=== PATIENT | male | born 1975 | race Caucasian/White ===

== ENCOUNTER 2019-08-02 23:03 | Emergency (ER) | payer SELFPAY ==
[2019-08-02 23:40] VITALS: BP_SYST 132
== END 2019-08-02 23:40 ==
LOC: SED 23:03
DX: S51.001A Unspecified open wound of right elbow, initial encounter (principal); Z13.89 Encounter for screening for other disorder; W45.8XXA Other foreign body or object entering through skin, initial encounter; Y93.89 Activity, other specified; Y92.89 Other specified places as the place of occurrence of the external cause; Y99.8 Other external cause status
CPT/HCPCS: 99283